=== PATIENT | male | born 1995 | race Caucasian/White ===

== ENCOUNTER 2019-04-27 00:44 | Emergency (ER) | payer SELFPAY ==
[~2019-04-27] VITALS: Ht 165.1 cm; Wt 62.4 kg
[~2019-04-27 00:44] MED LIST: ACET500C5 PO; IBUP-1542 PO; SIME180C4 PO
[2019-04-27 00:49] VITALS: BP 134/85; PULSE 69; RESP 16; Ht 165.1 cm; Wt 62.4 kg
[2019-04-27] MEDS ORDERED: IBUPROFEN 600 MG TAB PO ONE (02:30)
== END 2019-04-27 03:49 | disposition home or self-care (01) ==
LOC: FTE 00:44
DX: M25.50 Pain in unspecified joint (principal); F17.210 Nicotine dependence, cigarettes, uncomplicated
CPT/HCPCS: 99282